=== PATIENT | female | born 1965 | race Caucasian/White ===

== ENCOUNTER → 2025-04-11 14:43 | Outpatient (REF) | payer OTHER, SELFPAY | LOC: RCS 14:43 | PROVIDERS: ATTENDING PHYSICIAN Internal Medicine Cardiovascular Disease; FAMILY PHYSICIAN Family Medicine | DX: Z00.8 Encounter for other general examination (principal) | CPT/HCPCS: 93306 ==

== ENCOUNTER → 2025-04-12 12:19 | Outpatient (REF) | payer OTHER, SELFPAY | LOC: HWRCS 12:19 | PROVIDERS: ATTENDING PHYSICIAN Internal Medicine Cardiovascular Disease; FAMILY PHYSICIAN Family Medicine | DX: Z00.8 Encounter for other general examination (principal) | CPT/HCPCS: 78452; 93017; A9500 ==